=== PATIENT | female | born 1985 | race African-American/Black ===

== ENCOUNTER 2019-01-27 20:13 | Emergency (ER) | payer OTHER ==
[~2019-01-27] VITALS: Ht 162.6 cm; Wt 130.2 kg
--- OUTSIDE RECORDS SUMMARY | 2019-01-27 20:16 | XMS REPORT ---
Author Author [facility] [place] Address Unknown Phone Unavailable Care Team Providers Care Geriatrics Physician Name Role Phone GAURI LOMBARDI Unavailable Unavailable NERIS KAUR Unavailable Unavailable Problems This patient has no known problems. Allergies, Adverse Reactions, Alerts This patient has no known allergies or adverse reactions. Medications This patient has no known medications. Results Test Description Test Time Test Comments Text Results Atomic Results Result Comments URINALYSIS W/ REFLEX URINE CULTURE 2017-01-27 18:57:00 COLOR (BEAKER) (test ynzk=915) Yellow CLARITY (BEAKER) (test ozzj=097) Clear SPECIFIC GRAVITY UA (BEAKER) (test mcgk=229) 1.020 1.001-1.035 PH UA (BEAKER) (test syrv=038) 7.5 5.0-8.0 PROTEIN UA (BEAKER) (test mlfk=261) Negative Negative GLUCOSE UA (BEAKER) (test lour=660) Negative Negative KETONES UA (BEAKER) (test lvcp=856) Negative Negative BILIRUBIN UA (BEAKER) (test hanw=216) Negative Negative BLOOD UA (BEAKER) (test ricc=792) Negative Negative NITRITE UA (BEAKER) (test kkkg=126) Negative Negative LEUKOCYTE ESTERASE UA (BEAKER) (test apzt=571) Negative Negative UROBILINOGEN UA (BEAKER) (test rzfp=297) 4.0 mg/dL 0.2-1.0 BACTERIA (BEAKER) (test yips=251) Few RBC UA-MANUAL (BEAKER) (test qykv=5773) <5 /HPF WBC UA-MANUAL (BEAKER) (test fheo=1521) <5 /HPF SQUAMOUS EPITHELIAL MANUAL (BEAKER) (test ngpd=2457) <5 /HPF SOURCE(BEAKER) (test ulum=9476) SCREEN, [id number] 18:47:00* Test Item Value Reference Range Comments TEST URINE (BEAKER) (test ekda=757) Negative URINALYSIS W/ [id number] 19:09:00* Test Item Value Reference Range Comments COLOR (BEAKER) (test oszg=531) Yellow CLARITY (BEAKER) (test inxf=012) Clear SPECIFIC GRAVITY UA (BEAKER) (test lmjt=646) 1.020 1.001-1.035 PH UA (BEAKER) (test eoap=931) 7.0 5.0-8.0 PROTEIN UA (BEAKER) (test ksfk=498) Negative Negative GLUCOSE UA (BEAKER) (test hrep=248) Negative Negative KETONES UA (BEAKER) (test zhnl=128) Negative Negative BILIRUBIN UA (BEAKER) (test mjph=491) Negative Negative BLOOD UA (BEAKER) (test tnnc=712) Negative Negative NITRITE UA (BEAKER) (test xzgx=074) Negative Negative LEUKOCYTE ESTERASE UA (BEAKER) (test klur=333) Negative Negative UROBILINOGEN UA (BEAKER) (test ysnv=263) 4.0 mg/dL 0.2-1.0 BACTERIA (BEAKER) (test stkw=686) Occasional RBC UA-MANUAL (BEAKER) (test caxp=1949) None Seen /HPF WBC UA-MANUAL (BEAKER) (test hhqs=1152) <5 /HPF SQUAMOUS EPITHELIAL MANUAL (BEAKER) (test ezte=1562) <5 /HPF SOURCE(BEAKER) (test llxt=8322) SCREEN, [id number] 19:09:00* Test Item Value Reference Range Comments TEST URINE (BEAKER) (test pxfl=217) Negative
--- OUTSIDE RECORDS SUMMARY | 2019-01-27 20:16 | XMS REPORT | Clinical Summary ---
Author Author [facility] Address Unknown Phone Unavailable Care Team Providers Care Engineering Operations Leader Name Role Phone Sabi Caban MD PCP Unavailable Allergies No Known Allergies Medications End Date Status Medication Sig Dispensed Refills Start Date Active bismuth subsalicylate Take 2 30 each 0 (PEPTO-BISMOL) 262 mg tablets (524 7 Chew chewable tablet mg total) by mouth every 6 (six) hours as needed. Active Problems Problem Noted Date Chronic cholecystitis with calculus 06/04/2014 Biliary colic 06/04/2014 Cholecystitis 06/04/2014 Family History Medical History Relation Name Comments Diabetes Father Stroke Maternal Grandmother Diabetes Mother Heart disease Paternal Grandfather Relation Name Status Comments Father Maternal Grandmother Mother Paternal Grandfather Social History Date Tobacco Use Types Packs/Day Years Used Never Smoker Smokeless Tobacco: Never Used Alcohol Use Drinks/Week oz/Week Comments Yes socially Sex Assigned at Date Recorded Not on file Industry Job Start Date Occupation Not on file Not on file Not on file Travel End Travel History Travel Start No recent travel history available. Last Filed Vital Signs Not on file Plan of Treatment Not on file Results Not on fileafter 01/26/2018 Insurance Payer Benefit Subscriber ID Type Phone Address Plan / Group [facility] HMO/POS CARE POS SELECT CHOICE Advance Directives For more information, please contact: [facility] [address] [place] [address] Date Inactivated Comments Code Status Date Activated 06/06/2014 5:01 PM Full Code 06/04/2014 10:45 AM This code status was determined by: Patient
[2019-01-27] MEDS ORDERED: KETOROLAC TROMETHAMINE 60 MG/2 ML VIAL IM ONE (20:30)
[2019-01-27] MEDS ORDERED: ONDANSETRON HCL 4 MG ORAL DISINTEGRATING TAB PO ONE (20:30)
[2019-01-27] MEDS ORDERED: ACETAMINOPHEN 325 MG TAB PO ONE (20:30)
[2019-01-27] MEDS ORDERED: PREDNISONE 20 MG TAB PO ONE (20:30)
[2019-01-27] MEDS ORDERED: CEFTRIAXONE SOD 1 GM VIAL IM ONE (20:45)
--- NOTE | 2019-01-27 21:10 | NUR ---
ROCEPHIN 1 GM GIVEN TO LEFT HIP. USING 22 G NEEDLE.
[2019-01-27 21:20] VITALS: BP 127/70
== END 2019-01-27 22:28 | disposition home or self-care (01) ==
LOC: FSED 20:13
DX: M54.5 Low back pain (principal); S39.012A Strain of muscle, fascia and tendon of lower back, initial encounter; M47.816 Spondylosis without myelopathy or radiculopathy, lumbar region; M51.36 Other intervertebral disc degeneration, lumbar region; N30.91 Cystitis, unspecified with hematuria
CPT/HCPCS: 81003; 99283; J0696; J7512; Q0162

== ENCOUNTER 2021-11-19 22:09 | Emergency (ER) | payer BC, OTHER ==
[~2021-11-19] VITALS: Ht 162.6 cm; Wt 134.3 kg
[2021-11-20] MEDS ORDERED: BROMPHENIR-PSE118 ML PO (00:08)
[2021-11-20] MEDS ORDERED: FLONASE ALLERG9.9 ML INH (00:08)
== END 2021-11-20 00:20 | disposition home or self-care (01) ==
LOC: FSED 22:27
DX: R05.9 Cough, unspecified (principal); J06.9 Acute upper respiratory infection, unspecified
CPT/HCPCS: 83518; 87400; 99283

== ENCOUNTER 2021-11-23 08:24 | Emergency (ER) | payer BC ==
[~2021-11-23] VITALS: Ht 160 cm; Wt 134.3 kg
[~2021-11-23 08:24] MED LIST: BROMPHENIR-PSE118 ML PO; FLONASE ALLERG9.9 ML INH
[2021-11-23] MEDS ORDERED: AZITHROMYCIN250 MG PO (08:51)
== END 2021-11-23 09:00 | disposition home or self-care (01) ==
LOC: FSED 08:30
DX: R05.9 Cough, unspecified (principal); J06.9 Acute upper respiratory infection, unspecified
CPT/HCPCS: 99282

== ENCOUNTER 2022-07-02 13:15 | Emergency (ER) | payer BC ==
[~2022-07-02] VITALS: Ht 160 cm; Wt 134.3 kg
[~2022-07-02 13:15] MED LIST changes: +AZITHROMYCIN250 MG PO; +IBUPROFEN200 MG PO
== END 2022-07-02 16:44 | disposition home or self-care (01) ==
LOC: FSED 13:28
DX: Z48.02 Encounter for removal of sutures (principal)
CPT/HCPCS: 99282

== ENCOUNTER 2024-05-05 19:26 | Emergency (ER) | payer BC ==
[~2024-05-05] VITALS: Ht 160 cm; Wt 88.5 kg
[~2024-05-05 19:26] MED LIST changes: +CYCLOBENZAPRINE5 MG PO
[2024-05-05 19:55] VITALS: PULSE 88; RESP 18; TEMP 98.4
[2024-05-05] MEDS ORDERED: PREDNISONE20 MG PO (20:32)
[2024-05-05] MEDS: PREDNISONE 20 MG TAB PO ONE (20:33)
[2024-05-05 20:49] VITALS: BP 133/80; PULSE 88; RESP 18; TEMP 98.4; O2SAT 99
== END 2024-05-05 20:49 | disposition home or self-care (01) ==
LOC: FSED 19:46
DX: R21 Rash and other nonspecific skin eruption (principal); S80.862A Insect bite (nonvenomous), left lower leg, initial encounter; S80.861A Insect bite (nonvenomous), right lower leg, initial encounter
CPT/HCPCS: 99282; J7512

== ENCOUNTER 2024-11-01 19:16 | Emergency (ER) | payer BC ==
[~2024-11-01] VITALS: Ht 162.6 cm; Wt 129.3 kg
[~2024-11-01 19:16] MED LIST changes: +PREDNISONE20 MG PO
[2024-11-01 19:27] VITALS: PULSE 90; RESP 18; TEMP 98.4
[2024-11-01] MEDS: IBUPROFEN 600 MG TAB PO STA (20:40)
[2024-11-01] MEDS ORDERED: CYCLOBENZAPRINE5 MG PO (20:44)
[2024-11-01] MEDS ORDERED: KETOROLAC TROME10 MG PO (20:44)
[2024-11-01] MEDS: KETOROLAC TROMETHAMINE 60 MG/2 ML VIAL IM ONE (20:52)
[2024-11-01 22:00] VITALS: BP 130/88; PULSE 82; RESP 18; TEMP 98.4; O2SAT 98
== END 2024-11-01 22:00 | disposition home or self-care (01) ==
LOC: FSED 19:19
DX: R10.30 Lower abdominal pain, unspecified (principal); M54.9 Dorsalgia, unspecified; V43.52XA Car driver injured in collision with other type car in traffic accident, initial encounter; Y92.488 Other paved roadways as the place of occurrence of the external cause
CPT/HCPCS: 74176; 81003; 81025; 96372; 99283; J1885

== ENCOUNTER 2024-11-05 13:20 | Inpatient (IN) | payer BC ==
[~2024-11-05] VITALS: Ht 162.6 cm; Wt 144.4 kg
[~2024-11-05 13:20] MED LIST changes: +KETOROLAC TROME10 MG PO
[2024-11-05] MEDS: KETOROLAC TROMETHAMINE 30 MG/ML VIAL IV STA (14:15)
[2024-11-05] MEDS: SODIUM CHLORIDE 0.9% 1000ML 1,000 ML IV ONE (14:15)
[2024-11-05] MEDS: ONDANSETRON HCL INJ 2MG/ML 2ML 2 MG/ML VIAL IV STA ×2 (14:15→19:00)
[2024-11-05] MEDS: Morphine 2mg Syringe 2 MG/ML SYR IV ONE (14:17)
[2024-11-05] MEDS ORDERED: IOPAMIDOL 370 MG/ML 100 ML INFUS..BTL INJ ONE (15:00)
[2024-11-05] MEDS: FENTANYL CITRATE/PF 100MCG/2 ML INJ IV ONE ×2 (15:31→19:00)
[2024-11-05] MEDS: FAMOTIDINE 20 MG/2 ML VIAL IV STA (15:58)
[2024-11-05] MEDS: DICYCLOMINE HCL 20 MG/2 ML VIAL IM ONE (15:58)
[2024-11-05] MEDS ORDERED: ONDANSETRON HCL INJ 2MG/ML 2ML 2 MG/ML VIAL ONE (18:55)
[2024-11-05] MEDS ORDERED: SODIUM CHLORIDE 0.9% 1000ML 1,000 ML IV SCH (19:30)
[2024-11-05 19:56] VITALS: PULSE 73; RESP 17; TEMP 98.4
[2024-11-05 21:00] VITALS: BP 118/71; PULSE 73; RESP 17; TEMP 98.4; O2SAT 100
[2024-11-05 21:34] VITALS: BP 119/77; PULSE 82; RESP 21; TEMP 98.7; O2SAT 100
[2024-11-05] MEDS: ONDANSETRON HCL INJ 2MG/ML 2ML 2 MG/ML VIAL IV PRN (22:16)
[2024-11-05] MEDS: HYDROMORPHONE 1MG/1ML INJ IV PRN (22:16)
[2024-11-05] MEDS: SODIUM CHLORIDE 0.9% 1000ML 1,000 ML IV SCH (22:16)
[2024-11-06] VITALS (7 sets, daily range): BP systolic 111–138; BP diastolic 65–84; PULSE 69–113; RESP 16–22; TEMP 98.2–98.6; O2SAT 98–100
[2024-11-06] MEDS: PROMETHAZINE 12.5MG/ NACL 0.9% 12.5 MG/50 ML BAG IV PRN (03:02)
[2024-11-06 09:06] LABS: BASOPHILS % 0.1 % (0.0-1.0); HEMOGLOBIN 10.1 g/dL (12.0-16.0); LYMPHOCYTES # (AUTO) 0.8 (1.0-3.2); LYMPHOCYTES % 9.8 % (18.0-39.1); MEAN CORPUSCULAR HEMOGLOBIN 23.2 pg (28-32); MEAN CORPUSCULAR HGB CONC 30.6 g/dL (31-35); MEAN CORPUSCULAR VOLUME 75.7 fL (81-99); MONOCYTES # (AUTO) 0.4 (0.2-0.8); MONOCYTES % 5.2 % (4.4-11.3); NEUTROPHILS # (AUTO) 6.8 (2.1-6.9); NEUTROPHILS % 84.4 % (38.7-80.0); PLATELET COUNT 382 x10e3/uL (140-360); RED BLOOD COUNT 4.36 x10e6/uL (3.6-5.1); RED CELL DISTRIBUTION WIDTH 15.4 % (11.7-14.4); WHITE BLOOD COUNT 8.07 x10e3/uL (4.8-10.8)
[2024-11-06 09:30] LABS: ANION GAP 15.4 mmol/L (8-16); CALCIUM 8.3 mg/dL (8.4-10.2); CREATININE, SERUM 0.75 mg/dL (0.57-1.11)
[2024-11-06 09:32] LABS: POTASSIUM 3.4 mmol/L (3.5-5.1)
[2024-11-06 09:43] LABS: ALBUMIN 3.3 g/dL (3.5-5.0); BILIRUBIN,DIRECT 0.2 mg/dL (0.0-0.5); BILIRUBIN,TOTAL 0.6 mg/dL (0.2-1.2); MAGNESIUM 1.6 MG/DL (1.3-2.1); PHOSPHORUS 3.4 MG/DL (2.3-4.7)
[2024-11-06 09:44] LABS: CHOL/HDL RATIO 3.9 (3.0-3.6)
[2024-11-06] MEDS: LORAZEPAM INJ 2 MG/ML VIAL IV ONE ×2 (18:31)
[2024-11-06] MEDS: KETOROLAC TROMETHAMINE 30 MG/ML VIAL IV STA (19:22)
[2024-11-06] MEDS ORDERED: FENTANYL CITRATE/PF 100MCG/2 ML INJ ONE (23:26)
[2024-11-06] MEDS ORDERED: SUCCINYLCHOLINE CHLORIDE 20 MG/ML 10ML VIAL ONE (23:26)
[2024-11-06] MEDS ORDERED: ROCURONIUM BROMIDE 1 ML IV ONE (23:26)
[2024-11-06] MEDS ORDERED: LIDOCAINE HCL 2% LOCAL INJ 5 ML SDV VIAL INJ ONE (23:26)
[2024-11-06] MEDS ORDERED: PROPOFOL IV EMULSION 10 MG/ML 20 ML VIAL ONE (23:27)
[2024-11-06] MEDS ORDERED: BUPIVACAINE/EPI 0.5% 30ML SDV-MPF INJ ONE ×2 (23:31)
[2024-11-07] VITALS (83 sets, daily range): BP systolic 56–149; BP diastolic 28–115; PULSE 109–153; RESP 16–27; TEMP 96.6–100.4; O2SAT 99–100
[2024-11-07] MEDS ORDERED: DEXAMETHASONE SOD PHOS INJ 4 MG/ML SDV ONE (00:50)
[2024-11-07] MEDS ORDERED: ONDANSETRON HCL INJ 2MG/ML 2ML 2 MG/ML VIAL ONE (00:50)
[2024-11-07] MEDS ORDERED: KETOROLAC TROMETHAMINE 30 MG/ML VIAL ONE (00:50)
[2024-11-07] MEDS ORDERED: METOCLOPRAMIDE HCL 10 MG/2ML VIAL ONE (00:50)
[2024-11-07] MEDS ORDERED: ROCURONIUM BROMIDE 1 ML IV ONE ×7 (00:54→18:36)
[2024-11-07] MEDS ORDERED: HYDROMORPHONE 2MG/ML ONE ×2 (00:55→17:56)
[2024-11-07] MEDS ORDERED: MIDAZOLAM HCL 5 MG/ML VIAL ONE (02:04)
[2024-11-07] MEDS ORDERED: PROPOFOL IV EMULSION 10 MG/ML 20 ML VIAL IV PRN ×2 (02:45→03:15)
[2024-11-07] MEDS ORDERED: FENTANYL 2000MCG/NS 250 250 ML IV PRN (02:45)
[2024-11-07] MEDS: PROPOFOL IV EMULSION 10 MG/ML 20 ML VIAL IV ONE (03:31)
[2024-11-07] MEDS: LACTATED RINGER'S 1,000 ML IV ONE ×4 (03:34→10:58)
[2024-11-07] MEDS: PROPOFOL IV EMULSION 10MG/ML 100 ML IV PRN (03:42)
[2024-11-07] MEDS: FENTANYL 2000MCG/NS 250 250 ML IV PRN (04:33)
[2024-11-07 07:51] LABS: BASOPHILS % 0.1 % (0.0-1.0); HEMATOCRIT 37.5 % (34.2-44.1); HEMOGLOBIN 11.4 g/dL (12.0-16.0); LYMPHOCYTES # (AUTO) 0.4 (1.0-3.2); LYMPHOCYTES % 2.7 % (18.0-39.1); MEAN CORPUSCULAR HEMOGLOBIN 23.7 pg (28-32); MEAN CORPUSCULAR HGB CONC 30.4 g/dL (31-35); MEAN CORPUSCULAR VOLUME 77.8 fL (81-99); MONOCYTES # (AUTO) 1.6 (0.2-0.8); MONOCYTES % 9.8 % (4.4-11.3); NEUTROPHILS # (AUTO) 13.8 (2.1-6.9); PLATELET COUNT 475 x10e3/uL (140-360); RED BLOOD COUNT 4.82 x10e6/uL (3.6-5.1); RED CELL DISTRIBUTION WIDTH 15.9 % (11.7-14.4); WHITE BLOOD COUNT 15.88 x10e3/uL (4.8-10.8)
[2024-11-07] MEDS: SODIUM BICARBONATE 8.4% SYRING 50 ML in SODIUM CHLORIDE 0.45% 1,000 ML IV SCH (07:53)
[2024-11-07] MEDS ORDERED: POTASSIUM CHLORIDE 20MEQ/100ML 100 ML IV SCH (08:00)
[2024-11-07 08:15] LABS: ANION GAP 17.4 mmol/L (8-16); CALCIUM 7.2 mg/dL (8.4-10.2); CREATININE, SERUM 1.45 mg/dL (0.57-1.11); POTASSIUM 4.4 mmol/L (3.5-5.1)
[2024-11-07] MEDS: NOREPINEPHRINE 8 MG/D5W 250 ML 250 ML IV SCH (14:12)
[2024-11-07] MEDS ORDERED: SODIUM CHLORIDE 0.9% 100 ML ONE (17:05)
[2024-11-07] MEDS ORDERED: PHENYLEPHRINE HCL 1% 10 MG/ML VIAL ONE (17:05)
[2024-11-07] MEDS ORDERED: FENTANYL CITRATE/PF 100MCG/2 ML INJ ONE ×2 (17:29→17:56)
[2024-11-07] MEDS ORDERED: MIDAZOLAM HCL 2 MG/2 ML VIAL ONE (17:56)
[2024-11-07] MEDS ORDERED: CEFTRIAXONE 1 GM VIAL ONE (18:31)
[2024-11-08] VITALS (81 sets, daily range): BP systolic 72–121; BP diastolic 49–79; PULSE 104–125; RESP 14–24; TEMP 99.2–100.5; O2SAT 98–100
[2024-11-08 06:50] LABS: BASOPHILS % 0.2 % (0.0-1.0); EOSINOPHILS % 0.2 % (0.0-6.0); HEMATOCRIT 25.6 % (34.2-44.1); HEMOGLOBIN 7.9 g/dL (12.0-16.0); LYMPHOCYTES # (AUTO) 0.9 (1.0-3.2); LYMPHOCYTES % 7.1 % (18.0-39.1); MEAN CORPUSCULAR HEMOGLOBIN 23.3 pg (28-32); MEAN CORPUSCULAR HGB CONC 30.9 g/dL (31-35); MEAN CORPUSCULAR VOLUME 75.5 fL (81-99); MONOCYTES # (AUTO) 0.9 (0.2-0.8); MONOCYTES % 7.4 % (4.4-11.3); NEUTROPHILS # (AUTO) 10.1 (2.1-6.9); NEUTROPHILS % 84.5 % (38.7-80.0); PLATELET COUNT 249 x10e3/uL (140-360); RED BLOOD COUNT 3.39 x10e6/uL (3.6-5.1); RED CELL DISTRIBUTION WIDTH 15.9 % (11.7-14.4); WHITE BLOOD COUNT 11.97 x10e3/uL (4.8-10.8)
[2024-11-08 07:01] LABS: ALBUMIN 2.2 g/dL (3.5-5.0); ALBUMIN/GLOBULIN RATIO 0.9 (0.8-2.0); ANION GAP 11.6 mmol/L (8-16); CREATININE, SERUM 1.19 mg/dL (0.57-1.11); POTASSIUM 3.6 mmol/L (3.5-5.1); TOTAL PROTEIN 4.6 g/dL (6.5-8.1)
[2024-11-08 07:17] LABS: ABG HCO3 18 mmol/L (22-26); ABG PCO2 35 mmHg (35-45); ABG PH 7.33 (7.35-7.45); ABG PO2 32 mmHg (80-105); ABG TCO2 19
[2024-11-08] MEDS: POTASSIUM CHLORIDE 20MEQ/100ML 100 ML IV ONE (07:53)
[2024-11-08 11:33] LABS: BAND NEUTROPHILS % (MANUAL) 34 %; LYMPHOCYTES % (MANUAL) 6 % (19-48); MONOCYTES % (MANUAL) 5 % (3.4-9.0); NEUTROPHILS % (MANUAL) 55 % (40-74)
[2024-11-08 11:34] LABS: ABG HCO3 21 mmol/L (22-26); ABG PCO2 28 mmHg (35-45); ABG PO2 162 mmHg (80-105)
[2024-11-08 11:35] LABS: ABG TCO2 22
[2024-11-08 11:36] LABS: ANISOCYTOSIS SLIG; HYPOCHROMASIA SLIGHT; PLATELET ESTIMATE ADEQUATE; PLATELET MORPHOLOGY COMMENT NORMAL; POIKILOCYTOSIS SLIGHT
[2024-11-08] MEDS: LACTATED RINGER'S 1,000 ML INJ SCH (16:32)
[2024-11-08] MEDS: FUROSEMIDE INJ 10 MG/ML 4 ML VIAL IV ONE (23:14)
[2024-11-09] VITALS (52 sets, daily range): BP systolic 93–126; BP diastolic 53–73; PULSE 104–128; RESP 12–22; TEMP 99–101.4; O2SAT 93–100
[2024-11-09 10:50] LABS: ABG PCO2 40 mmHg (35-45); ABG PH 7.42 (7.35-7.45); ABG PO2 92 mmHg (80-105)
[2024-11-09 10:51] LABS: ABG HCO3 26 mmol/L (22-26); ABG TCO2 28
[2024-11-09] MEDS: LACTATED RINGER'S 1,000 ML INJ SCH (13:35)
[2024-11-09 14:15] LABS: ALBUMIN 1.9 g/dL (3.5-5.0); ALBUMIN/GLOBULIN RATIO 0.6 (0.8-2.0); ANION GAP 14.3 mmol/L (8-16); BILIRUBIN,TOTAL 1.5 mg/dL (0.2-1.2); CALCIUM 7.3 mg/dL (8.4-10.2); CREATININE, SERUM 0.71 mg/dL (0.57-1.11); TOTAL PROTEIN 4.9 g/dL (6.5-8.1)
[2024-11-09 14:34] LABS: POTASSIUM 3.3 mmol/L (3.5-5.1)
[2024-11-09] MEDS: ACETAMINOPHEN 650 MG SUPP PR PRN (15:11)
[2024-11-09 15:35] LABS: BASOPHILS % 0.1 % (0.0-1.0); EOSINOPHILS # (AUTO) 0.1 (0.0-0.4); EOSINOPHILS % 0.7 % (0.0-6.0); LYMPHOCYTES # (AUTO) 0.9 (1.0-3.2); LYMPHOCYTES % 6.1 % (18.0-39.1); MEAN CORPUSCULAR HEMOGLOBIN 23.3 pg (28-32); MEAN CORPUSCULAR HGB CONC 30.5 g/dL (31-35); MEAN CORPUSCULAR VOLUME 76.3 fL (81-99); MONOCYTES # (AUTO) 0.6 (0.2-0.8); MONOCYTES % 4.2 % (4.4-11.3); NEUTROPHILS # (AUTO) 12.3 (2.1-6.9); NEUTROPHILS % 87.3 % (38.7-80.0); PLATELET COUNT 221 x10e3/uL (140-360); RED BLOOD COUNT 2.62 x10e6/uL (3.6-5.1); RED CELL DISTRIBUTION WIDTH 15.9 % (11.7-14.4); WHITE BLOOD COUNT 14.13 x10e3/uL (4.8-10.8)
[2024-11-09 15:39] LABS: HEMOGLOBIN 6.1 g/dL (12.0-16.0)
[2024-11-09] MEDS: POTASSIUM CHLORIDE 20MEQ/100ML 100 ML IV SCH (16:12)
[2024-11-09] MEDS: SODIUM CHLORIDE 0.9% 250ML 250 ML IV ONE (18:30)
[2024-11-09] MEDS: SODIUM CHLORIDE 0.9% 250ML 250 ML ONE (23:28)
[2024-11-10] VITALS (34 sets, daily range): BP systolic 100–146; BP diastolic 60–93; PULSE 95–115; RESP 13–22; TEMP 98.3–99.7; O2SAT 95–100
[2024-11-10 06:41] LABS: BASOPHILS % 0.2 % (0.0-1.0); EOSINOPHILS # (AUTO) 0.2 (0.0-0.4); EOSINOPHILS % 1.1 % (0.0-6.0); HEMATOCRIT 26.3 % (34.2-44.1); HEMOGLOBIN 8.4 g/dL (12.0-16.0); LYMPHOCYTES # (AUTO) 0.9 (1.0-3.2); LYMPHOCYTES % 5.7 % (18.0-39.1); MEAN CORPUSCULAR HEMOGLOBIN 25.5 pg (28-32); MEAN CORPUSCULAR HGB CONC 31.9 g/dL (31-35); MEAN CORPUSCULAR VOLUME 79.7 fL (81-99); MONOCYTES # (AUTO) 0.8 (0.2-0.8); MONOCYTES % 5.1 % (4.4-11.3); NEUTROPHILS # (AUTO) 12.9 (2.1-6.9); NEUTROPHILS % 87.2 % (38.7-80.0); PLATELET COUNT 211 x10e3/uL (140-360); RED CELL DISTRIBUTION WIDTH 16.2 % (11.7-14.4); WHITE BLOOD COUNT 14.82 x10e3/uL (4.8-10.8)
[2024-11-10 07:12] LABS: ALBUMIN 1.9 g/dL (3.5-5.0); ALBUMIN/GLOBULIN RATIO 0.6 (0.8-2.0); ANION GAP 14.6 mmol/L (8-16); BILIRUBIN,TOTAL 2.7 mg/dL (0.2-1.2); CALCIUM 7.8 mg/dL (8.4-10.2); CREATININE, SERUM 0.65 mg/dL (0.57-1.11); POTASSIUM 3.6 mmol/L (3.5-5.1); TOTAL PROTEIN 5.3 g/dL (6.5-8.1)
[2024-11-10] MEDS: POTASSIUM CHLORIDE 20MEQ/100ML 100 ML IV SCH (09:28)
[2024-11-10] MEDS: HYDROMORPHONE 1MG/1ML INJ IV PRN (11:46)
[2024-11-10] MEDS: ENOXAPARIN SOD INJ 40 MG/0.4 ML SYR SC SCH (17:37)
[2024-11-11] VITALS (30 sets, daily range): BP systolic 101–149; BP diastolic 55–96; PULSE 96–113; RESP 14–27; TEMP 98.6–100.5; O2SAT 84–100
[2024-11-11 05:43] LABS: BASOPHILS % 0.2 % (0.0-1.0); EOSINOPHILS # (AUTO) 0.1 (0.0-0.4); EOSINOPHILS % 0.5 % (0.0-6.0); HEMATOCRIT 24.9 % (34.2-44.1); LYMPHOCYTES # (AUTO) 0.8 (1.0-3.2); LYMPHOCYTES % 4.3 % (18.0-39.1); MEAN CORPUSCULAR HEMOGLOBIN 25.2 pg (28-32); MEAN CORPUSCULAR HGB CONC 31.3 g/dL (31-35); MEAN CORPUSCULAR VOLUME 80.3 fL (81-99); MONOCYTES # (AUTO) 1.3 (0.2-0.8); MONOCYTES % 6.4 % (4.4-11.3); NEUTROPHILS # (AUTO) 17.3 (2.1-6.9); NEUTROPHILS % 87.7 % (38.7-80.0); PLATELET COUNT 275 x10e3/uL (140-360); RED CELL DISTRIBUTION WIDTH 16.5 % (11.7-14.4); WHITE BLOOD COUNT 19.74 x10e3/uL (4.8-10.8)
[2024-11-11 05:54] LABS: HEMOGLOBIN 7.8 g/dL (12.0-16.0)
[2024-11-11 06:00] LABS: ALBUMIN 1.8 g/dL (3.5-5.0); ALBUMIN/GLOBULIN RATIO 0.5 (0.8-2.0); ANION GAP 17.3 mmol/L (8-16); BILIRUBIN,TOTAL 2.6 mg/dL (0.2-1.2); CALCIUM 8.1 mg/dL (8.4-10.2); CREATININE, SERUM 0.66 mg/dL (0.57-1.11); TOTAL PROTEIN 5.3 g/dL (6.5-8.1)
[2024-11-11 06:04] LABS: POTASSIUM 3.3 mmol/L (3.5-5.1)
[2024-11-11] MEDS: POTASSIUM CHLORIDE 20MEQ/100ML 100 ML IV SCH (08:26)
[2024-11-12] VITALS (17 sets, daily range): BP systolic 106–139; BP diastolic 64–87; PULSE 92–116; RESP 16–24; TEMP 98.1–99.6; O2SAT 89–100
[2024-11-12 06:37] LABS: BASOPHILS % 0.2 % (0.0-1.0); EOSINOPHILS # (AUTO) 0.1 (0.0-0.4); EOSINOPHILS % 0.5 % (0.0-6.0); HEMATOCRIT 25.8 % (34.2-44.1); LYMPHOCYTES # (AUTO) 1.2 (1.0-3.2); LYMPHOCYTES % 5.8 % (18.0-39.1); MEAN CORPUSCULAR HEMOGLOBIN 25.2 pg (28-32); MEAN CORPUSCULAR HGB CONC 30.6 g/dL (31-35); MEAN CORPUSCULAR VOLUME 82.2 fL (81-99); MONOCYTES # (AUTO) 1.3 (0.2-0.8); MONOCYTES % 6.5 % (4.4-11.3); NEUTROPHILS # (AUTO) 16.2 (2.1-6.9); NEUTROPHILS % 81.7 % (38.7-80.0); PLATELET COUNT 328 x10e3/uL (140-360); RED BLOOD COUNT 3.14 x10e6/uL (3.6-5.1); RED CELL DISTRIBUTION WIDTH 17.2 % (11.7-14.4); WHITE BLOOD COUNT 19.88 x10e3/uL (4.8-10.8)
[2024-11-12 06:38] LABS: HEMOGLOBIN 7.9 g/dL (12.0-16.0)
[2024-11-12 07:02] LABS: ALBUMIN 1.9 g/dL (3.5-5.0); ALBUMIN/GLOBULIN RATIO 0.5 (0.8-2.0); ANION GAP 17.2 mmol/L (8-16); BILIRUBIN,TOTAL 2.1 mg/dL (0.2-1.2); CALCIUM 8.7 mg/dL (8.4-10.2); CREATININE, SERUM 0.6 mg/dL (0.57-1.11)
[2024-11-12 07:04] LABS: POTASSIUM 3.2 mmol/L (3.5-5.1)
[2024-11-12] MEDS ORDERED: CHLORASEPTIC SPRAY 177 ML BTL MM PRN (08:00)
[2024-11-12 09:25] LABS: EOSINOPHILS % (MANUAL) 2 % (0-7); HYPOCHROMASIA SLIGHT; LYMPHOCYTES % (MANUAL) 5 % (19-48); MONOCYTES % (MANUAL) 5 % (3.4-9.0); NEUTROPHILS % (MANUAL) 88 % (40-74); PLATELET ESTIMATE ADEQUATE; PLATELET MORPHOLOGY COMMENT NORMAL
[2024-11-12 09:26] LABS: ANISOCYTOSIS SLIGHT; POLYCHROMASIA FEW
[2024-11-12] MEDS: POTASSIUM CHLORIDE 20MEQ/100ML 100 ML IV SCH (10:36)
[2024-11-13] VITALS (9 sets, daily range): BP systolic 100–126; BP diastolic 47–73; PULSE 91–108; RESP 18–20; TEMP 98.3–99.4; O2SAT 97–100
[2024-11-13 05:20] LABS: BASOPHILS % 0.2 % (0.0-1.0); EOSINOPHILS # (AUTO) 0.1 (0.0-0.4); EOSINOPHILS % 0.5 % (0.0-6.0); HEMATOCRIT 25.8 % (34.2-44.1); LYMPHOCYTES # (AUTO) 1.7 (1.0-3.2); LYMPHOCYTES % 9.5 % (18.0-39.1); MEAN CORPUSCULAR HEMOGLOBIN 25.1 pg (28-32); MEAN CORPUSCULAR HGB CONC 30.6 g/dL (31-35); MEAN CORPUSCULAR VOLUME 81.9 fL (81-99); MONOCYTES % 5.6 % (4.4-11.3); NEUTROPHILS # (AUTO) 14.5 (2.1-6.9); NEUTROPHILS % 81.6 % (38.7-80.0); PLATELET COUNT 326 x10e3/uL (140-360); RED BLOOD COUNT 3.15 x10e6/uL (3.6-5.1); RED CELL DISTRIBUTION WIDTH 17.8 % (11.7-14.4)
[2024-11-13 05:43] LABS: HEMOGLOBIN 7.9 g/dL (12.0-16.0)
[2024-11-13 05:44] LABS: ALBUMIN/GLOBULIN RATIO 0.5 (0.8-2.0); ANION GAP 17.8 mmol/L (8-16); BILIRUBIN,TOTAL 1.3 mg/dL (0.2-1.2); CALCIUM 8.3 mg/dL (8.4-10.2); CREATININE, SERUM 0.64 mg/dL (0.57-1.11); TOTAL PROTEIN 5.8 g/dL (6.5-8.1)
[2024-11-13 05:52] LABS: POTASSIUM 2.8 mmol/L (3.5-5.1)
[2024-11-13 09:26] LABS: EOSINOPHILS % (MANUAL) 2 % (0-7); LYMPHOCYTES % (MANUAL) 7 % (19-48); MYELOCYTES % (MANUAL) 1 % (0-0); NEUTROPHILS % (MANUAL) 90 % (40-74); PLATELET ESTIMATE ADEQUATE; PLATELET MORPHOLOGY COMMENT NORMAL; RBC MORPHOLOGY COMMENT NORMAL
[2024-11-13] MEDS ORDERED: IOPAMIDOL 370 MG/ML 100 ML INFUS..BTL INJ ONE (10:35)
[2024-11-13] MEDS ORDERED: POTASSIUM CHLORIDE 20 MEQ TAB CR PO ONE (11:45)
[2024-11-13] MEDS ORDERED: ACETAMINOPHEN 1000 MG/100 ML IV SCH (12:00)
[2024-11-13] MEDS: POTASSIUM CHLORIDE 20MEQ/100ML 100 ML IV ONE (13:45)
[2024-11-13 16:21] LABS: ANION GAP 11.1 mmol/L (8-16); CALCIUM 8.1 mg/dL (8.4-10.2); CREATININE, SERUM 0.63 mg/dL (0.57-1.11)
[2024-11-13 16:23] LABS: POTASSIUM 3.1 mmol/L (3.5-5.1)
[2024-11-13] MEDS: SODIUM CHLORIDE 0.9% 1000ML 1,000 ML IV SCH (17:21)
[2024-11-13] MEDS: LACTATED RINGER'S 1,000 ML IV ONE (18:28)
[2024-11-13] MEDS: PERIPHERAL TPN FORMULA 1 BAG IV SCH (19:49)
[2024-11-14] VITALS (11 sets, daily range): BP systolic 112–138; BP diastolic 71–84; PULSE 92–108; RESP 18–19; TEMP 97.6–99; O2SAT 95–100
[2024-11-14 06:38] LABS: BASOPHILS % 0.1 % (0.0-1.0); EOSINOPHILS # (AUTO) 0.1 (0.0-0.4); EOSINOPHILS % 0.7 % (0.0-6.0); HEMATOCRIT 26.9 % (34.2-44.1); HEMOGLOBIN 8.3 g/dL (12.0-16.0); LYMPHOCYTES # (AUTO) 1.7 (1.0-3.2); LYMPHOCYTES % 9.4 % (18.0-39.1); MEAN CORPUSCULAR HEMOGLOBIN 25.1 pg (28-32); MEAN CORPUSCULAR HGB CONC 30.9 g/dL (31-35); MEAN CORPUSCULAR VOLUME 81.3 fL (81-99); MONOCYTES % 5.5 % (4.4-11.3); NEUTROPHILS # (AUTO) 14.4 (2.1-6.9); NEUTROPHILS % 81.2 % (38.7-80.0); PLATELET COUNT 359 x10e3/uL (140-360); RED BLOOD COUNT 3.31 x10e6/uL (3.6-5.1); RED CELL DISTRIBUTION WIDTH 18.6 % (11.7-14.4)
[2024-11-14 07:01] LABS: ANION GAP 15.1 mmol/L (8-16); CALCIUM 8.2 mg/dL (8.4-10.2); CREATININE, SERUM 0.74 mg/dL (0.57-1.11)
[2024-11-14 07:12] LABS: POTASSIUM 3.1 mmol/L (3.5-5.1)
[2024-11-14 07:50] LABS: BAND NEUTROPHILS % (MANUAL) 1 %; LYMPHOCYTES % (MANUAL) 5 % (19-48); MONOCYTES % (MANUAL) 7 % (3.4-9.0); NEUTROPHILS % (MANUAL) 84 % (40-74); REACTIVE LYMPHOCYTES 3
[2024-11-14 07:52] LABS: HYPOCHROMASIA SLIGHT; PLATELET ESTIMATE ADEQUATE; PLATELET MORPHOLOGY COMMENT NORMAL; POLYCHROMASIA FEW
[2024-11-14 07:56] LABS: PHOSPHORUS 3.8 MG/DL (2.3-4.7)
[2024-11-14] MEDS: ACETAMINOPHEN 1000 MG/100 ML IV PRN (10:05)
[2024-11-14] MEDS ORDERED: ACETAMINOPHEN 650 MG SUPP PR PRN (12:00)
[2024-11-14] MEDS: PERIPHERAL TPN FORMULA 1 BAG IV SCH (21:57)
[2024-11-15] VITALS (7 sets, daily range): BP systolic 110–123; BP diastolic 53–77; PULSE 83–100; RESP 16–20; TEMP 97.6–98.7; O2SAT 93–100
[2024-11-15 09:22] LABS: BASOPHILS % 0.2 % (0.0-1.0); EOSINOPHILS # (AUTO) 0.2 (0.0-0.4); EOSINOPHILS % 1.4 % (0.0-6.0); HEMOGLOBIN 7.7 g/dL (12.0-16.0); LYMPHOCYTES # (AUTO) 1.6 (1.0-3.2); LYMPHOCYTES % 9.7 % (18.0-39.1); MEAN CORPUSCULAR HEMOGLOBIN 25.2 pg (28-32); MEAN CORPUSCULAR HGB CONC 30.8 g/dL (31-35); MONOCYTES # (AUTO) 0.8 (0.2-0.8); MONOCYTES % 5.1 % (4.4-11.3); NEUTROPHILS % 81.4 % (38.7-80.0); PLATELET COUNT 356 x10e3/uL (140-360); RED BLOOD COUNT 3.05 x10e6/uL (3.6-5.1); RED CELL DISTRIBUTION WIDTH 19.2 % (11.7-14.4); WHITE BLOOD COUNT 16.03 x10e3/uL (4.8-10.8)
[2024-11-15 09:26] LABS: ANION GAP 11.9 mmol/L (8-16); CALCIUM 7.3 mg/dL (8.4-10.2); CREATININE, SERUM 0.64 mg/dL (0.57-1.11)
[2024-11-15 09:32] LABS: POTASSIUM 2.9 mmol/L (3.5-5.1)
[2024-11-15] MEDS: POTASSIUM CHLORIDE 20 MEQ TAB CR PO STA (10:29)
[2024-11-15] MEDS ORDERED: PERIPHERAL TPN FORMULA 1 BAG IV SCH (20:00)
[2024-11-15] MEDS: ACETAMINOPHEN 1000 MG/100 ML IV PRN (21:23)
[2024-11-16] VITALS (9 sets, daily range): BP systolic 112–128; BP diastolic 63–80; PULSE 59–93; RESP 16–20; TEMP 97.9–99; O2SAT 93–100
[2024-11-16 13:57] LABS: BASOPHILS % 0.1 % (0.0-1.0); EOSINOPHILS % 0.9 % (0.0-6.0); HEMATOCRIT 29.4 % (34.2-44.1); HEMOGLOBIN 8.9 g/dL (12.0-16.0); LYMPHOCYTES # (AUTO) 1.5 (1.0-3.2); LYMPHOCYTES % 10.8 % (18.0-39.1); MEAN CORPUSCULAR HGB CONC 30.3 g/dL (31-35); MEAN CORPUSCULAR VOLUME 82.6 fL (81-99); MONOCYTES # (AUTO) 0.5 (0.2-0.8); MONOCYTES % 3.5 % (4.4-11.3); NEUTROPHILS # (AUTO) 11.8 (2.1-6.9); NEUTROPHILS % 83.3 % (38.7-80.0); PLATELET COUNT 372 x10e3/uL (140-360); RED BLOOD COUNT 3.56 x10e6/uL (3.6-5.1); RED CELL DISTRIBUTION WIDTH 19.9 % (11.7-14.4); WHITE BLOOD COUNT 14.17 x10e3/uL (4.8-10.8)
[2024-11-16 13:58] LABS: EOSINOPHILS # (AUTO) 0.1 (0.0-0.4)
[2024-11-16 14:20] LABS: ALANINE AMINOTRANSFERASE 40 IU/L (0-55); ALBUMIN 2.3 g/dL (3.5-5.0); ALBUMIN/GLOBULIN RATIO 0.6 (0.8-2.0); ALKALINE PHOSPHATASE 66 IU/L (40-150); ANION GAP 14.1 mmol/L (8-16); BILIRUBIN,TOTAL 0.6 mg/dL (0.2-1.2); BLOOD UREA NITROGEN < 5 mg/dL (7-26); CALCIUM 7.7 mg/dL (8.4-10.2); CARBON DIOXIDE 21 mmol/L (22-29); CHLORIDE 106 mmol/L (98-107); CREATININE, SERUM 0.62 mg/dL (0.57-1.11); EST GLOMERULAR FILTRATION RATE 115 ML/MIN (>=60); GLUCOSE 129 mg/dL (74-118); SODIUM 138 mmol/L (136-145); TOTAL PROTEIN 6.4 g/dL (6.5-8.1)
[2024-11-16 14:23] LABS: BUN/CREATININE RATIO 8 (6-25); POTASSIUM 3.1 mmol/L (3.5-5.1)
[2024-11-16] MEDS: POTASSIUM CHLORIDE 20MEQ/100ML 100 ML IV SCH (16:52)
[2024-11-16] MEDS: POTASSIUM CHLORIDE 20 MEQ TAB CR PO SCH (16:52)
[2024-11-17] VITALS: BP 121/78; PULSE 92; RESP 18; TEMP 98.9; O2SAT 100
[2024-11-17 04:00] VITALS: BP_SYST 119; BP_SYST 136; BP_DIAS 72; BP_DIAS 73; PULSE 63; PULSE 97; RESP 18; TEMP 97.7; TEMP 99; O2SAT 100; O2SAT 97
[2024-11-17 08:21] VITALS: BP 119/66; PULSE 97; RESP 18; TEMP 98.4; O2SAT 100
[2024-11-17 09:00] VITALS: BP 119/66; PULSE 97; RESP 18; TEMP 98.4; O2SAT 100
[2024-11-17 10:30] LABS: ABG HCO3 26 mmol/L (22-26); ABG PCO2 40 mmHg (35-45); ABG PH 7.42 (7.35-7.45); ABG PO2 92 mmHg (80-105); ABG TCO2 28
[2024-11-17 10:30] LABS: ABG HCO3 21 mmol/L (22-26); ABG PCO2 28 mmHg (35-45); ABG PO2 162 mmHg (80-105); ABG TCO2 22
[2024-11-17 11:32] VITALS: BP 113/93; PULSE 101; RESP 19; TEMP 98.8; O2SAT 100
[2024-11-17 12:35] VITALS: PULSE 97; RESP 16; O2SAT 96
[2024-11-17] MEDS: TRAMADOL HCL 50 MG TAB PO PRN (14:03)
[2024-11-17] MEDS ORDERED: DOCUSATE SODIU100 M1 PO (14:14)
[2024-11-17] MEDS ORDERED: ULTRAM 50MG50 MG PO (14:14)
[2024-11-17] MEDS ORDERED: SENOKOT8.6 MG PO (14:14)
[2024-11-17] MEDS ORDERED: ONDANSETRON ODT4 MG PO (14:14)
[2024-11-17] MEDS ORDERED: POTASSIUM CHLO20 ME1 PO (14:14)
[2024-11-17] MEDS ORDERED: ACETAMINOPHEN650 MG PR (14:14)
== END 2024-11-17 17:45 | disposition home or self-care (01) | DRG 853 ==
LOC: FSED 13:24 → ERHOLD 19:19 → MED/SURG2 21:57 → ICU 11-07 02:28 → MED/SURG 11-12 18:30
PROVIDERS: ADMIT Internal Medicine; ATTEND Internal Medicine
PROC: 3E0333Z Introduction of Anti-inflammatory into Peripheral Vein, Percutaneous Approach (ICD-10-PCS; 2024-11-06)
PROC: 0W9G0ZZ Drainage of Peritoneal Cavity, Open Approach (ICD-10-PCS; 2024-11-07)
PROC: 0DNU0ZZ Release Omentum, Open Approach (ICD-10-PCS; 2024-11-07)
PROC: 0WJG4ZZ Inspection of Peritoneal Cavity, Percutaneous Endoscopic Approach (ICD-10-PCS; 2024-11-07)
PROC: 4A133R1 Monitoring of Arterial Saturation, Peripheral, Percutaneous Approach (ICD-10-PCS; 2024-11-07)
PROC: 0T9B70Z Drainage of Bladder with Drainage Device, Via Natural or Artificial Opening (ICD-10-PCS; 2024-11-07)
PROC: 0DB80ZZ Excision of Small Intestine, Open Approach (ICD-10-PCS; 2024-11-07)
PROC: 5A1945Z Respiratory Ventilation, 24-96 Consecutive Hours (ICD-10-PCS; 2024-11-07)
PROC: 0DS80ZZ Reposition Small Intestine, Open Approach (ICD-10-PCS; principal; 2024-11-07 00:17)
PROC: 30233N1 Transfusion of Nonautologous Red Blood Cells into Peripheral Vein, Percutaneous Approach (ICD-10-PCS; 2024-11-09)
PROC: 3E0336Z Introduction of Nutritional Substance into Peripheral Vein, Percutaneous Approach (ICD-10-PCS; 2024-11-13)
DX: A41.9 Sepsis, unspecified organism (principal); K55.019 Acute (reversible) ischemia of small intestine, extent unspecified; R65.21 Severe sepsis with septic shock; N17.0 Acute kidney failure with tubular necrosis; K55.069 Acute infarction of intestine, part and extent unspecified; K56.2 Volvulus; K65.9 Peritonitis, unspecified; K85.90 Acute pancreatitis without necrosis or infection, unspecified; E87.21 Acute metabolic acidosis; Z68.43 Body mass index [BMI] 50.0-59.9, adult; J98.11 Atelectasis; E83.51 Hypocalcemia; E66.01 Morbid (severe) obesity due to excess calories; R53.81 Other malaise; E86.0 Dehydration; E87.6 Hypokalemia; M54.9 Dorsalgia, unspecified; D64.9 Anemia, unspecified; M19.90 Unspecified osteoarthritis, unspecified site; Z90.49 Acquired absence of other specified parts of digestive tract; Z79.899 Other long term (current) drug therapy
CPT/HCPCS: 36415; 36600; 74018; 74177; 80048; 80053; 80061; 80076; 81003; 81025; 82805; 82948; 83036; 83605; 83690; 83735; 84100; 84132; 85025; 86850; 86900; 86920; 88304; 88307; 94002; 94003; 94799; 96361; 96372; 96374; 96375; 99252; 99284; J0330; J0696; J1100; J1171; J1308; J1650; J1885; J2003; J2250; J2270; J2371; J2405; J2543; J2550; J2765; J3480; J7030; J7050; P9016; Q9967

== ENCOUNTER 2025-01-09 22:00 | Emergency (ER) | payer BC ==
[~2025-01-09] VITALS: Ht 162.6 cm; Wt 123.8 kg
[~2025-01-09 22:00] MED LIST changes: +ACETAMINOPHEN650 MG PR; +DOCUSATE SODIU100 M1 PO; +ONDANSETRON ODT4 MG PO; +POTASSIUM CHLO20 ME1 PO; +SENOKOT8.6 MG PO; +ULTRAM 50MG50 MG PO
[2025-01-09 22:10] VITALS: PULSE 85; RESP 18; TEMP 98.9
[2025-01-09] MEDS ORDERED: SODIUM CHLORIDE 0.9% 1000ML 1,000 ML ONE (23:25)
[2025-01-09] MEDS: SODIUM CHLORIDE 0.9% 1000ML 1,000 ML IV ONE (23:28)
[2025-01-09] MEDS: FAMOTIDINE 20 MG/2 ML VIAL IV STA (23:28)
[2025-01-10 01:05] VITALS: BP 131/60; PULSE 79; RESP 18; TEMP 98.9; O2SAT 100
== END 2025-01-10 01:05 | disposition home or self-care (01) ==
LOC: FSED 22:13
DX: R42 Dizziness and giddiness (principal); D64.9 Anemia, unspecified; R11.0 Nausea
CPT/HCPCS: 80053; 81003; 81025; 85025; 99283; J1308; J7030